=== PATIENT | female | born 1950 | race Caucasian/White ===

== ENCOUNTER 2023-02-07 14:42 | Inpatient (IN) | payer MEDICARE, OTHER ==
[2023-02-07] MEDS ORDERED: Piperacillin/Tazobactam 4.5 GM VIAL ONE (15:20)
[2023-02-07] MEDS ORDERED: Sodium Chloride 0.9% 100 ML ONE (15:21)
[2023-02-07 15:29] LABS: #Eosinphils 0.1 thou/uL (0.0-0.7); #Lymphocytes 1.5 thou/uL (1.20-3.40); #Monocytes 0.4 thou/uL (0.11-0.59); #Neutrophils 3.4 thou/uL (1.40-6.50); %Basophils 0.8 % (0.0-1.0); %Monocytes 7.3 % (0.0-10.0); Hematocrit 39.3 % (36.0-47.0); Hemoglobin 13.1 g/dL (12.0-16.0); Mean Corpuscular HGB CONC 33.4 g/dL (32.0-36.0); Mean Corpuscular Volume 89.9 fl (78.0-98.0); Mean Platelet Volume 5.5 fL (7.4-10.4); Platelet Count 256 10x3/uL (130-400); RBC Distribution Width 11.1 % (11.5-14.5); Red Blood Cell (RBC) Count 4.37 mill/uL (4.20-5.40); White Blood Cell (WBC) Count 5.4 10x3/uL (4.8-10.8)
[2023-02-07] MEDS ORDERED: Morphine 4 MG/ML VIAL ONE (15:43)
[2023-02-07 15:45] LABS: ALT (SGPT) 30 U/L (8-55); AST (SGOT) 18 U/L (5-34); Albumin 3.7 g/dL (3.4-4.8); Alkaline Phosphatase 111 U/L (40-110); Anion Gap 14 mmol/L (10-20); BUN (Urea Nitrogen) 8 mg/dL (9.8-20.1); Bilirubin, Total 0.7 mg/dL (0.2-1.2); Calc. Creatinine Clearance 0 mL/min (70-130); Calcium 9.2 mg/dL (7.8-10.44); Carbon Dioxide 25 mmol/L (23-31); Chloride 101 mmol/L (98-107); Estimated GFR 88; Globulin 3.1 g/dL (2.4-3.5); Glucose 193 mg/dL (83-110); Potassium 3.4 mmol/L (3.5-5.1); Protein, Total 6.8 g/dL (5.8-8.1); Sodium 137 mmol/L (136-145)
[2023-02-07] MEDS ORDERED: Morphine 2 MG/ML VIAL ONE (17:39)
[2023-02-07 19:38] VITALS: BMI 31.4
[2023-02-07] MEDS ORDERED: Ondansetron ODT 4 MG TAB PO PRN (20:06)
[2023-02-07] MEDS ORDERED: Ondansetron PF 4 MG/2 ML Vial IVP PRN (20:06)
[2023-02-07] MEDS ORDERED: Senokot S 8.6-50 MG TAB PO PRN (20:06)
[2023-02-07] MEDS ORDERED: Dextrose 5% in Water 1,000 ML IV PRN (20:19)
[2023-02-07] MEDS ORDERED: Dextrose 50% Abboject 50 ML SYRINGE SLOW IVP PRN (20:19)
[2023-02-07] MEDS ORDERED: Glucagon 1 MG/ML KIT IM PRN (20:19)
[2023-02-07] MEDS ORDERED: HumaLOG 300 UNITS/3 ML VIAL SC PRN (20:19)
[2023-02-07] MEDS ORDERED: Potassium Chloride 20 MEQ TAB PO SCH (20:30)
[2023-02-07] MEDS ORDERED: Enoxaparin 40 MG (0.4 mL) SYRINGE SC SCH (20:45)
[2023-02-07] MEDS: Piperacillin/Tazobactam 3.375 GM in Sodium Chloride 0.9% 100 ML IVPB SCH (22:58)
[2023-02-07] MEDS: Acetaminophen 325 MG TAB PO PRN (22:59)
[2023-02-07] MEDS: Famotidine 20 MG TAB PO SCH (23:01)
[2023-02-07] MEDS: Lantus 1000 UNITS/10 ML VIAL SC SCH (23:01)
[2023-02-08 05:29] VITALS: BP 155/83; TEMP 97.6
[2023-02-08] MEDS: Piperacillin/Tazobactam 3.375 GM in Sodium Chloride 0.9% 100 ML IVPB SCH ×3 (06:02→20:59)
[2023-02-08] MEDS: Acetaminophen 325 MG TAB PO PRN ×3 (06:02→21:00)
[2023-02-08 06:06] LABS: Anion Gap 16 mmol/L (10-20); BUN (Urea Nitrogen) 8 mg/dL (9.8-20.1); CRP (Inflammatory) 3.23 mg/dL (= or < 0.5); Calc. Creatinine Clearance 96 mL/min (70-130); Carbon Dioxide 21 mmol/L (23-31); Chloride 103 mmol/L (98-107); Estimated GFR 93; Glucose 221 mg/dL (83-110); Potassium 4.1 mmol/L (3.5-5.1); Sodium 136 mmol/L (136-145)
[2023-02-08] MEDS ORDERED: HumaLOG 300 UNITS/3 ML VIAL SC SCH ×3 (08:00→17:00)
[2023-02-08] MEDS ORDERED: Glucagon 1 MG/ML KIT IM PRN (08:54)
[2023-02-08] MEDS ORDERED: Dextrose 50% Abboject 50 ML SYRINGE SLOW IVP PRN (08:54)
[2023-02-08] MEDS ORDERED: HumaLOG 300 UNITS/3 ML VIAL SC PRN (08:54)
[2023-02-08] MEDS ORDERED: Dextrose 5% in Water 1,000 ML IV PRN (08:54)
[2023-02-08] MEDS ORDERED: Escitalopram Oxalate 10 mg Tablet PO SCH (09:00)
[2023-02-08] MEDS ORDERED: Aspirin Chewable 81 MG TAB PO SCH (09:00)
[2023-02-08] MEDS ORDERED: Ezetimibe 10 MG TAB PO SCH (09:00)
[2023-02-08] MEDS ORDERED: Enoxaparin 40 MG (0.4 mL) SYRINGE SC SCH (09:00)
[2023-02-08] MEDS ORDERED: Rosuvastatin 10 MG TAB PO SCH (09:00)
[2023-02-08] MEDS ORDERED: Losartan 25 MG TAB PO SCH (09:00)
[2023-02-08] MEDS: Famotidine 20 MG TAB PO SCH ×2 (10:25→21:00)
[2023-02-08] MEDS: Lantus 1000 UNITS/10 ML VIAL SC SCH (21:05)
[2023-02-09] MEDS: Piperacillin/Tazobactam 3.375 GM in Sodium Chloride 0.9% 100 ML IVPB SCH (04:50)
[2023-02-09] MEDS ORDERED: HumaLOG 300 UNITS/3 ML VIAL SC SCH ×2 (08:00→12:00)
[2023-02-10] MEDS ORDERED: FLU VACC QS2023(65UP)/MF59C/PF 60 MCG/0.5 ML SYRINGE IM ONE (20:45)
== END 2023-02-09 08:05 | disposition short-term general hospital (02) | DRG 949 ==
LOC: BURERS 14:42 → BURMED 17:45
PROVIDERS: ADMIT Family Medicine; ATTEND Family Medicine
DX: S61.451D Open bite of right hand, subsequent encounter (principal); L03.113 Cellulitis of right upper limb; S61.551D Open bite of right wrist, subsequent encounter; I10 Essential (primary) hypertension; E78.5 Hyperlipidemia, unspecified; M19.90 Unspecified osteoarthritis, unspecified site; E11.65 Type 2 diabetes mellitus with hyperglycemia; E87.6 Hypokalemia; Z90.710 Acquired absence of both cervix and uterus; Z98.890 Other specified postprocedural states; Z79.4 Long term (current) use of insulin; Z79.82 Long term (current) use of aspirin; Z90.49 Acquired absence of other specified parts of digestive tract
CPT/HCPCS: 36415; 80048; 80053; 85025; 86140; 96365; 96375; 96376; 97602; J1650; J1815; J2270; J2272; J2405; J2543; J3490

== ENCOUNTER 2024-01-03 14:04 | Outpatient (CLI) | payer MEDICARE, OTHER | END 2024-01-03 14:05 | disposition home or self-care (01) | LOC: BURRAD 14:04 | PROVIDERS: ATTEND Physician Assistant | DX: R10.32 Left lower quadrant pain (principal) ==